=== PATIENT | female | born 1990 | race African-American/Black ===

== ENCOUNTER → 2017-01-19 | Outpatient (CLI) | payer BC ==
[~2017-01-19] MED LIST: AMITRIPTYLINE H10 M1 PO; FIORINAL 325 MG1 CAP PO; IMITREX100 MG PO; NECON 0.5/35 351 TAB PO
== END ==
LOC: BHSO 10:59
DX: F41.1 Generalized anxiety disorder (principal)
CPT/HCPCS: 90791-AI

== ENCOUNTER 2017-12-04 13:29 | Emergency (ER) | payer BC ==
[~2017-12-04] VITALS: Ht 172.7 cm; Wt 97.3 kg
[2017-12-04 13:33] VITALS: BP 1027/79; TEMP 99.2
[2017-12-04 14:57] VITALS: PULSE 71
== END 2017-12-04 14:57 | disposition home or self-care (01) ==
LOC: COL.ER 13:29
DX: S61.213A Laceration without foreign body of left middle finger without damage to nail, initial encounter (principal); Z79.82 Long term (current) use of aspirin; W26.0XXA Contact with knife, initial encounter; Y92.009 Unspecified place in unspecified non-institutional (private) residence as the place of occurrence of the external cause

== ENCOUNTER → 2018-05-02 | Outpatient (CLI) | payer BC | LOC: BHSO 13:34 | DX: F41.1 Generalized anxiety disorder (principal) | CPT/HCPCS: G0463 ==

== ENCOUNTER → 2018-07-13 | Outpatient (CLI) | payer BC | LOC: BHSO 15:12 | DX: F41.1 Generalized anxiety disorder (principal) | CPT/HCPCS: G0463 ==

== ENCOUNTER → 2018-10-19 | Outpatient (CLI) | payer BC | LOC: BHSO 16:08 | DX: F33.41 Major depressive disorder, recurrent, in partial remission (principal) | CPT/HCPCS: G0463 ==

== ENCOUNTER → 2018-11-27 | Outpatient (CLI) | payer BC | LOC: BHSO 15:55 | DX: F41.1 Generalized anxiety disorder (principal) | CPT/HCPCS: G0463 ==

== ENCOUNTER → 2018-12-20 | Outpatient (CLI) | payer BC | LOC: BHSO 15:57 | DX: F41.1 Generalized anxiety disorder (principal) ==

== ENCOUNTER → 2019-07-09 | Outpatient (CLI) | payer BC | LOC: BHSO 14:35 | DX: F41.1 Generalized anxiety disorder (principal) | CPT/HCPCS: G0463 ==

== ENCOUNTER → 2019-07-24 | Outpatient (CLI) | payer BC | LOC: BHSO 13:01 | DX: F41.1 Generalized anxiety disorder (principal) ==

== ENCOUNTER → 2019-08-06 | Outpatient (CLI) | payer BC | LOC: BHSO 14:40 | DX: F33.41 Major depressive disorder, recurrent, in partial remission (principal) | CPT/HCPCS: G0463 ==

== ENCOUNTER → 2019-08-07 | Outpatient (CLI) | payer BC | LOC: BHSO 11:02 | DX: F41.1 Generalized anxiety disorder (principal) ==

== ENCOUNTER → 2019-08-26 | Outpatient (CLI) | payer BC | LOC: BHSO 12:48 | DX: F41.1 Generalized anxiety disorder (principal) ==

== ENCOUNTER → 2019-09-06 | Outpatient (CLI) | payer BC | LOC: BHSO 14:16 | DX: F33.41 Major depressive disorder, recurrent, in partial remission (principal) | CPT/HCPCS: G0463 ==

== ENCOUNTER → 2019-11-18 | Outpatient (CLI) | payer BC | LOC: BHSO 13:47 | DX: F33.42 Major depressive disorder, recurrent, in full remission (principal) | CPT/HCPCS: G0463 ==

== ENCOUNTER → 2020-03-02 | Outpatient (CLI) | payer BC | LOC: BHSO 15:58 | DX: F31.81 Bipolar II disorder (principal) ==

== ENCOUNTER → 2020-03-10 | Outpatient (CLI) | payer BC | LOC: BHSO 16:03 | DX: F33.41 Major depressive disorder, recurrent, in partial remission (principal) | CPT/HCPCS: G0463 ==